=== PATIENT | male | born 1970 | race African-American/Black ===

== ENCOUNTER → 2019-06-11 | Outpatient (CLI) | payer BC, OTHER ==
--- NOTE | ~2019-06-11 | PFR/MVV ---
[facility] [place] [address] PULMONARY FUNCTION MVV/REPORT Name: MIO RAI [facility]#: [id number] Admission: 06/11/19 Attend Phys: Jaquan Schaffer DO Discharge: Date of : 68 Report #: [id number] THIS REPORT FOR: //name// >> SPIROMETRY: (BTPS) Height: 71 in cm Weight: 210 lbs kg Exam Date: 06/11/19 PRE-RX POST-RX PRED BEST %PRED BEST %PRED %CHG FVC LITERS . 5.04 . 6.24 . 124 . 6.11 . 121 . -2 FEV1 LITERS . 3.70 . 4.41 . 119 . 4.61 . 125 . 5 FEV1/FVC % . 73 . 71 . 97 . 76 . 103 . 7 MCK07-11% L/Sec . 3.65 . 2.72 . 75 . 3.82 . 105 . 41 PEF L/SEC . 9.24 . 11.49 . 124 . 10.19 . 110 . -11 FEF50/FIF50 UNITLESS . . 0.80 . . 1.11 . . 39 MVV L/Min . 158 . 73 . 46 f 1/Min . . 280 . >> LUNG VOLUMES: (BTPS) PRE-RX POST-RX PRED AVG %PRED AVG %PRED %CHG VC Liters . 5.04 . 6.24 . 124 . . . TLC Liters . 7.06 . 7.86 . 111 . . . RV Liters . 2.25 . 1.62 . 72 . . . RV/TLC % . 34 . 21 . 61 . . . FRC PL Liters . 3.66 . 3.19 . 87 . . . FRC N2 Liters . . . . . . ERV Liters . 1.68 . 1.57 . 93 . . . IC Liters . 3.37 . 4.39 . 130 . . . >> DIFFUSION: DLCO ml/Min/mmHg . 28.5 . 27.9 . 98 . . . DL Willie ml/Min/mmHg . 28.5 . 27.9 . 98 . . . DLCO/VA ml/Min/mmHg . 4.02 . 6.17 . 154 . . . VA Liters . 7.30 . 4.52 . 62 . . . COMMENTS: COMMENTS: >> RESISTANCE: [facility] [address] [place] [address] PULMONARY FUNCTION MVV/REPORT Name: MIO RAI Room #: REG [facility].#: [id number] Admission: 06/11/19 Attend Phys: Jaquan Schaffer DO Discharge: Date of : 68 Report #: [id number] PRE-RX PRED AVG %PRED Raw Total cmH20/L/Sec . . 2.76 . Raw Insp cmH20/L/Sec . . 0.95 . Raw Exp cmH20/L/Sec . . 1.54 . Raw cmH20/L/Sec . 1.22 . 1.39 . 114 Gaw L/Sec/cmH20 . 0.879 . 0.721 . 82 sRaw cmH20 Sec . 4.46 . 1.85 . 109 sGaw l/cmH20 Sec . 0.224 . 0.206 . 92 Vtq Liters . . 3.50 . # = OUTSIDE 95% CONFIDENCE INTERVAL CALIBRATION: PRED: 3.00 ACTUAL: EXP 3.01 INSP 3.02 [facility]-OL10-06 [facility] N-1804-4 >> INTERPRETATION/IMPRESSION: CC: Jaquan Schaffer DATE OF SERVICE: 06/11/2019 PULMONARY FUNCTION STUDIES: FEV1 is 4.41 liters (119%), FVC is 6.24 liters (124%), FEV1/FVC ratio is 71%. There is no significant response to bronchodilator therapy. LUNG VOLUMES: Total lung capacity is 7.86 liters (111%). Diffusing capacity is normal at 98%. IMPRESSION: Pulmonary function studies are consistent with normal pulmonary function. There is borderline obstruction in regards to the FEV1/FVC ratio, however, is likely a physiologic variant. Normal pulmonary function. By: Zaid Lowe MD /nt
== END ==
LOC: PUL 08:31
DX: R06.02 Shortness of breath (principal)

== ENCOUNTER → 2020-04-14 | Outpatient (CLI) | payer BC, OTHER | LOC: SJCVCIMAG 07:49 | PROVIDERS: ATTEND Internal Medicine | DX: I08.8 Other rheumatic multiple valve diseases (principal); E78.5 Hyperlipidemia, unspecified; J45.909 Unspecified asthma, uncomplicated ==